=== PATIENT | female | born 1955 | race Two or more races ===

== ENCOUNTER → 2024-10-17 | Outpatient (CLI) | payer MEDICAID, SELFPAY ==
--- NOTE | 2024-10-17 09:47 | XR_ITS ---
Examination: Diagnostic digital mammography, unilateral, LEFT Computer aided detection 3-D breast Tomosynthesis, unilateral Date and time of exam: October 17, 2024 0955 hours INDICATIONS: Mammogram August 01, 2024 focal asymmetry 9:00 position left breast Technique: Nonmagnified MLO, CC views of the left breast have been obtained, reconstructed from 3-D Tomosynthesis images. R2 computer aided detection program utilized for evaluation of suspicious masses and/or abnormal calcifications. 3-D Tomosynthesis images obtained. Findings: Scattered areas of fibroglandular density Focal asymmetry remains lower left breast MLO view not confirmed as a definite nodule on the spot compression cc view Impression: BI-RADS category 0: Incomplete: Need additional imaging evaluation Recommend left breast sonography follow-up
== END | disposition home or self-care (01) ==
PROVIDERS: Referring Provider Physician Assistant; Visit Provider Physician Assistant
DX: Z12.31 Encounter for screening mammogram for malignant neoplasm of breast (principal); R92.8 Other abnormal and inconclusive findings on diagnostic imaging of breast
CPT/HCPCS: 77061; 77065; G0279

== ENCOUNTER → 2025-01-15 | Outpatient (CLI) | payer OTHER, MEDICAID, SELFPAY ==
--- NOTE | 2025-01-15 15:35 | XR_ITS ---
Examination: Breast ultrasound, unilateral, left complete Date and time of exam: January 15, 2025 1548 hrs. Indications: Mammogram October 17, 2024 focal asymmetry lower left breast Technique: Real-time calvillo scale ultrasonographic imaging performed left breast including all 4 quadrants as well as nipple retroareolar and axillary region. Findings: 4:00 cyst 3 x 2 mm No solid nodules Impression: BI-RADS Category 2: Benign findings
== END | disposition home or self-care (01) ==
PROVIDERS: PCP Physician Assistant; Referring Provider Physician Assistant; Visit Provider Physician Assistant
DX: N60.02 Solitary cyst of left breast (principal)
CPT/HCPCS: 76641